=== PATIENT | female | born 1975 | race American Indian/Alaskan Native ===

== ENCOUNTER 2020-05-24 09:55 | Observation (INO) | payer OTHER ==
--- NOTE | 2020-05-24 10:00 | Event Note ---
ED Screening Note ED Screening Note: 44-year-old female that presents with chest pain and SOB with near syncope. This initial assessment/diagnostic orders/clinical plan/treatment(s) is/are subject to change based on patients health status, clinical progression and re- assessment by fellow clinical providers in the ED. Further treatment and workup at subsequent clinical providers discretion. Patient/guardian urged not to elope from the ED as their condition may be serious if not clinically assessed and managed. Initial orders include: cardiac workup
[2020-05-24 10:41] LABS: Basophils % (Auto) 0.5 % (0.0-1.8); Eosinophils # (Auto) 0.1 K/mm3 (0.0-0.4); Eosinophils % (Auto) 1.1 % (0.0-4.3); Hematocrit 45.5 % (30.3-42.9); Hemoglobin 15.6 gm/dl (10.1-14.3); Lymphocytes # (Auto) 2.6 K/mm3 (1.2-5.4); Lymphocytes % (Auto) 43.4 % (13.4-35.0); Mean Corpuscular HGB Conc 34 % (30-34); Mean Corpuscular Volume 94 fl (79-97); Monocytes # (Auto) 0.4 K/mm3 (0.0-0.8); Monocytes % (Auto) 6.9 % (0.0-7.3); Platelet Count 316 K/mm3 (140-440); Red Blood Count 4.85 M/mm3 (3.65-5.03); Red Cell Distribution Width 13.9 % (13.2-15.2)
[2020-05-24 10:47] LABS: INR 1.03 (0.87-1.13); Partial Thromboplastin Time 25.9 Sec. (24.2-36.6)
[2020-05-24 10:52] LABS: Alanine Aminotransferase 15 units/L (7-56); Albumin 4.1 g/dL (3.9-5); BUN/Creatinine Ratio 11; Blood Urea Nitrogen 9 mg/dL (7-17); Calcium 9.1 mg/dL (8.4-10.2); Hemolysis Index 7
[2020-05-24] MEDS ORDERED: FAMOTIDINE 20 MG TAB PO ONE (11:44)
[2020-05-24] MEDS ORDERED: LORazepam 1 MG TAB PO ONE (11:44)
--- NOTE | 2020-05-24 11:47 | XRay Report ---
CHEST 2 VIEWS, 05/24/2020 11:39 AM INDICATION: Chest pain COMPARISON: None FINDINGS: Support devices: None. Heart: The cardiac silhouette is normal in size. Lungs/pleura: The lungs are clear of focal airspace disease or significant pleural effusion. Additional findings: No significant acute abnormality. IMPRESSION: 1. No evidence of acute cardiopulmonary process. Signer Name: Jayleen Elias MD Signed: 05/24/2020 11:42 AM Workstation Name: [id number]
[2020-05-24] MEDS ORDERED: cloNIDine 0.1 MG TAB PO ONE (11:50)
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
[2020-05-24] MEDS ORDERED: cloNIDine 0.2 MG TAB PO ONE (12:57)
[2020-05-24] MEDS ORDERED: ASPIRIN 325 MG TAB PO ONE (14:02)
[2020-05-24] MEDS ORDERED: NITROGLYCERIN 2% OINT 1 GM TP ONE (14:02)
[2020-05-24] MEDS ORDERED: NITROGLYCERIN 0.4 MG TAB SUBL SL PRN (14:18)
[2020-05-24] MEDS ORDERED: ACETAMINOPHEN 325 MG TAB PO PRN ×2 (14:18→15:00)
--- NOTE | 2020-05-24 14:21 | History and Physical Report ---
History of Present Illness Chief complaint: Chest pain History of present illness: 44 YO Female with HTN, Medication Noncompliance presents to ED for evaluation. Patient states that she experienced sudden onset of pain in her chest shortly after awakening up from sleep this morning. Patient states that pain is 5/10, initially intermittent but has become more constant throughout the day, not worsened with exertion, not relieved with rest, substernal, nonradiating. Patient transported to [facility] via private vehicle for further care and evaluation of the aforementioned symptoms. Patient seen and evaluated in the emergency department. All lab and imaging studies reviewed. Patient found to have clinical symptoms consistent with angina. Cardiology team consulted. Patient placed in observation status and admitted to telemetry floor. Patient denies fever, chills, palpitations, productive cough, skin rash, recent ill contacts, or known exposure to COVID-19. No prior admission for review. No medication listed at time of admission for reconciliation. Past History Past Medical History: hypertension, other (See HPI) Past Surgical History: No surgical history, Other (Reviewed) Social history: single. denies: smoking, alcohol abuse, prescription drug abuse Family history: hypertension Medications and Allergies Allergies Allergy/AdvReac Type Severity Reaction Status Date / Time Penicillins AdvReac Nausea Verified 05/24/20 10:00 Home Medications Medication Instructions Recorded Confirmed Last Taken Type hydroCHLOROthiazide [HCTZ] 25 mg PO QDAY #30 tablet 04/26/18 05/24/20 Unknown Rx lisinopriL [Lisinopril] 20 mg PO DAILY #30 tablet 04/26/18 05/24/20 Unknown Rx Review of Systems Constitutional: no weight loss, no weight gain, no fever, no chills Ears, nose, mouth and throat: no ear pain, no ear discharge, no tinnitis, no nos e pain, no nasal congestion Cardiovascular: chest pain, no orthopnea, no palpitations, no edema, no syncope, no lightheadedness, no shortness of breath Respiratory: no cough, no cough with sputum, no hemoptysis, no shortness of breath Gastrointestinal: no nausea, no vomiting, no constipation Genitourinary Female: no pelvic pain, no flank pain, no dysuria, no urinary frequency, no urgency Rectal: no pain, no incontinence, no bleeding Musculoskeletal: no neck stiffness, no neck pain, no arm numbness/tingling Integumentary: no rash, no pruritis, no redness, no sores, no wounds Neurological: no paralysis, no parathesias, no numbness, no tingling, no seizures, no syncope Psychiatric: anxiety, no insomnia, no hypersomnia, no change in libido, no disorientation Endocrine: no cold intolerance, no polyphagia, no excessive thirst, no polyuria, no nocturia, no excessive sweating Hematologic/Lymphatic: no easy bruising, no easy bleeding Allergic/Immunologic: no urticaria, no allergic rhinitis, no wheezing Exam - Constitutional Vitals: Temp Pulse Resp BP Pulse Ox 97.7 F 64 16 170/103 99 05/24/20 10:03 05/24/20 14:09 05/24/20 14:00 05/24/20 14:09 05/24/20 14:00 General appearance: Present: no acute distress, well-nourished - EENT Eyes: Present: PERRL ENT: hearing intact, clear oral mucosa - Neck Neck: Present: supple, normal ROM - Respiratory Respiratory effort: normal Respiratory: bilateral: CTA - Cardiovascular Heart Sounds: Present: S1 & S2. Absent: rub, click - Extremities Extremities: pulses symmetrical, No edema Peripheral Pulses: within normal limits - Abdominal General gastrointestinal: Present: soft, non-tender, non-distended, normal bowel sounds Female genitourinary: Present: normal - Integumentary Integumentary: Present: clear, warm, dry - Musculoskeletal Musculoskeletal: gait normal, strength equal bilaterally - Psychiatric Psychiatric: appropriate mood/affect, intact judgment & insight - Neurologic Neurologic: CNII-XII intact, moves all extremities HEART Score - HEART Score EKG: Normal Age: 45-65 Risk factors: 1-2 risk factors Troponin: Troponin T 0.025 ng/mL (0.00-0.029) 05/24/20 12:58 Troponin: 1-3x normal limit Results - Labs CBC & Chem 7: 05/24/20 10:06 05/24/20 10:06 Labs: Abnormal lab results 05/24/20 05/24/20 Range/Units 10:06 10:06 Hgb 15.6 H (10.1-14.3) gm/dl Hct 45.5 H (30.3-42.9) % Lymph % (Auto) 43.4 H (13.4-35.0) % Potassium 3.4 L (3.6-5.0) mmol/L Glucose 106 H (65-100) mg/dL Assessment and Plan - Patient Problems (1) Chest pain Current Visit: Yes Status: Acute Plan to address problem: Serial cardiac enzymes, EKG, remote telemetry, cardiology team consulted in ED, stress test in a.m., PPI therapy. (2) Hypertensive urgency Current Visit: Yes Status: Acute Plan to address problem: Monitor blood pressure every shift, resume prehospital antihypertensive therapy. (3) DVT prophylaxis Current Visit: Yes Status: Acute Plan to address problem: SCD to bilateral lower extremities while in bed, patient is ambulatory.
[2020-05-24] MEDS ORDERED: ASPIRIN 81 MG TAB CHEW PO STA (14:25)
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
[2020-05-24] MEDS ORDERED: ONDANSETRON 4 MG/2 ML INJ IV PRN (15:00)
[2020-05-24] MEDS: hydroCHLOROthiazide 25 MG TAB PO SCH (15:23)
[2020-05-24] MEDS: LISINOPRIL 20 MG TAB PO SCH (15:23)
[2020-05-24 16:42] LABS: Amphetamine Screen,Urine Negative; Benzodiazepines Screen,Urine Negative; Cocaine Screen,Urine Negative; Methadone Screen,Urine Negative; Opiate Screen,Urine Negative
[2020-05-24 17:03] LABS: Cannabinoid Screen,Urine Positive
--- NOTE | 2020-05-25 08:42 | Progress Note ---
Assessment and Plan - Patient Problems (1) Angina pectoris Current Visit: Yes Status: Acute Plan to address problem: -Presented with a complaint of chest pain and near syncopal episode -Cardiology consulted -05/25 Lexiscan stress test pending -05/25 echocardiogram pending plan for Lexiscan stress MPI in AM. NPO after midnight. -Initiate chest per protocol -S/p aspirin and Pepcid in the ED -Morphine and nitroglycerin as needed -ECGs as needed -Cardiac enzymes: Less than 0.010, 0.013, 0.025, less than 0.010, less than 0.010 (2) Hypertensive urgency Current Visit: Yes Status: Acute Plan to address problem: -Presented with a blood pressure 183/114 which later was documented at 215/117 -S/p clonidine 0.3 mg in the ED and Pepcid -Restarted home antihypertensives regimen, titrate as needed -Blood pressure monitoring per protocol -Hydralazine as needed for SBP greater than 160 (3) Hypokalemia Current Visit: Yes Status: Acute Plan to address problem: -Presented with a potassium of 3.4 -Repleted -Trend BMP (4) Near syncope Current Visit: Yes Status: Acute Plan to address problem: -Presented with a near syncopal episode per patient's family -Orthostatic vital signs -Blood pressure monitoring per protocol -Patient presented with hypertensive urgency -Supportive care -Fall precautions (5) ETOH abuse Current Visit: Yes Status: Chronic Plan to address problem: -Per documentation patient 4-5 shots of liquor per week -Monitor for alcohol withdrawal -Alcohol cessation education (6) DVT prophylaxis Current Visit: Yes Status: Acute Plan to address problem: -SCDs to bilateral lower extremities while in bed History Interval history: 44 YO Female with HTN and medication noncompliance presents to the emergency department with complaints of progressive substernal, nonradiating chest pain described as "prickling"/stabbing sensation rated at a 5/10 associated with self-reported shortness of breath, tachypnea and lightheadedness. Cardiology was consulted. Hospitalist Physical - Constitutional Vitals: Temp Pulse Resp BP Pulse Ox 98.3 F 58 L 18 141/95 100 05/25/20 07:53 05/25/20 07:53 05/25/20 07:53 05/25/20 07:53 05/25/20 07:53 General appearance: Present: no acute distress, well-nourished HEART Score - HEART Score EKG: Normal Age: 45-65 Risk factors: 1-2 risk factors Troponin: Troponin T < 0.010 ng/mL (0.00-0.029) 05/24/20 20:44 Troponin: 1-3x normal limit Results - Labs CBC & Chem 7: 05/24/20 10:06 05/24/20 10:06 Labs: Laboratory Last Values WBC 5.9 K/mm3 (4.5-11.0) 05/24/20 10:06 RBC 4.85 M/mm3 (3.65-5.03) 05/24/20 10:06 Hgb 15.6 gm/dl (10.1-14.3) H 05/24/20 10:06 Hct 45.5 % (30.3-42.9) H 05/24/20 10:06 MCV 94 fl (79-97) 05/24/20 10:06 MCH 32 pg (28-32) 05/24/20 10:06 MCHC 34 % (30-34) 05/24/20 10:06 RDW 13.9 % (13.2-15.2) 05/24/20 10:06 Plt Count 316 K/mm3 (140-440) 05/24/20 10:06 Lymph % (Auto) 43.4 % (13.4-35.0) H 05/24/20 10:06 Glasscock % (Auto) 6.9 % (0.0-7.3) 05/24/20 10:06 Eos % (Auto) 1.1 % (0.0-4.3) 05/24/20 10:06 Baso % (Auto) 0.5 % (0.0-1.8) 05/24/20 10:06 Lymph # (Auto) 2.6 K/mm3 (1.2-5.4) 05/24/20 10:06 Glasscock # (Auto) 0.4 K/mm3 (0.0-0.8) 05/24/20 10:06 Eos # (Auto) 0.1 K/mm3 (0.0-0.4) 05/24/20 10:06 Baso # (Auto) 0.0 K/mm3 (0.0-0.1) 05/24/20 10:06 Seg Neutrophils % 48.1 % (40.0-70.0) 05/24/20 10:06 Seg Neutrophils # 2.8 K/mm3 (1.8-7.7) 05/24/20 10:06 PT 13.4 Sec. (12.2-14.9) 05/24/20 10:06 INR 1.03 (0.87-1.13) 05/24/20 10:06 APTT 25.9 Sec. (24.2-36.6) 05/24/20 10:06 Sodium 143 mmol/L (137-145) 05/24/20 10:06 Potassium 3.4 mmol/L (3.6-5.0) L 05/24/20 10:06 Chloride 103.0 mmol/L (98-107) 05/24/20 10:06 Carbon Dioxide 27 mmol/L (22-30) 05/24/20 10:06 Anion Gap 16 mmol/L 05/24/20 10:06 BUN 9 mg/dL (7-17) 05/24/20 10:06 Creatinine 0.8 mg/dL (0.6-1.2) 05/24/20 10:06 Estimated GFR > 60 ml/min 05/24/20 10:06 BUN/Creatinine Ratio 11 % 05/24/20 10:06 Glucose 106 mg/dL (65-100) H 05/24/20 10:06 Calcium 9.1 mg/dL (8.4-10.2) 05/24/20 10:06 Total Bilirubin 0.50 mg/dL (0.1-1.2) 05/24/20 10:06 AST 15 units/L (5-40) 05/24/20 10:06 ALT 15 units/L (7-56) 05/24/20 10:06 Alkaline Phosphatase 110 units/L (35-129) 05/24/20 10:06 Troponin T < 0.010 ng/mL (0.00-0.029) 05/24/20 20:44 Total Protein 7.3 g/dL (6.3-8.2) 05/24/20 10:06 Albumin 4.1 g/dL (3.9-5) 05/24/20 10:06 Albumin/Globulin Ratio 1.3 % 05/24/20 10:06 HCG, Qual Negative (Negative) 05/24/20 10:06 Urine Opiates Screen Negative 05/24/20 15:25 Urine Methadone Screen Negative 05/24/20 15:25 Ur Barbiturates Screen Negative 05/24/20 15:25 Ur Phencyclidine Scrn Negative 05/24/20 15:25 Ur Amphetamines Screen Negative 05/24/20 15:25 U Benzodiazepines Scrn Negative 05/24/20 15:25 Urine Cocaine Screen Negative 05/24/20 15:25 U Marijuana (THC) Screen Positive 05/24/20 15:25 Drugs of Abuse Note Disclamer 05/24/20 15:25 Lang/IV: Voiding Method Toilet IV Catheter Type [Right INT / Saline Lock Forearm] Active Medications - Current Medications Current Medications: Generic Name Dose Route Start Last Admin Trade Name Freq PRN Reason Stop Dose Admin Acetaminophen 650 mg 05/24/20 14:18 Acetaminophen 325 Mg Tab PO Q4H PRN Pain MILD(1-3)/Fever >100.5/ZHANG Hydrochlorothiazide 25 mg 05/24/20 15:23 05/24/20 15:23 Hydrochlorothiazide 25 Mg Tab PO 25 mg QDAY SENG Administration Lisinopril 20 mg 05/24/20 14:23 05/24/20 15:23 Lisinopril 20 Mg Tab PO 20 mg QDAY SENG Administration Nitroglycerin 0.4 mg 05/24/20 14:18 Nitroglycerin 0.4 Mg Tab Subl SL Q5M PRN Chest Pain Ondansetron HCl 4 mg 05/24/20 15:00 Ondansetron 4 Mg/2 Ml Inj IV Q8H PRN Nausea And Vomiting Potassium Chloride 20 meq 05/25/20 09:00 Potassium Chloride Er 20 Meq Tab PO 05/25/20 09:01 ONCE ONE Sodium Chloride 10 ml 05/24/20 22:00 05/24/20 21:03 Sodium Chloride 0.9% 10 Ml Flush Syringe IV 10 ml BID SENG Administration Sodium Chloride 10 ml 05/24/20 15:00 Sodium Chloride 0.9% 10 Ml Flush Syringe IV PRN PRN LINE FLUSH Sodium Chloride 10 ml 05/24/20 15:00 Sodium Chloride 0.9% 10 Ml Flush Syringe IV PRN PRN LINE FLUSH
[2020-05-25] MEDS ORDERED: POTASSIUM CHLORIDE ER 20 MEQ TAB PO NR (09:00)
[2020-05-25] MEDS ORDERED: REGADENOSON 0.4 MG/5 ML INJ IV ONE (09:27)
--- NOTE | 2020-05-25 11:21 | Treadmill Report ---
REASON FOR STUDY: Chest pain and borderline troponin. Heart score of 4. IMAGING PROTOCOL: The patient received 10 mCi of Technetium 99m Tetrofosmin for resting image and 28 mCi of Technetium 99m Tetrofosmin for stress imaging. The imaging for the whole procedure was completed 30-90 minutes following the initial injection of Technetium 99m Tetrofosmin. The SPECT imaging in the 180 degree arc was performed in the right anterior oblique projection. Computerized reconstruction of the images was performed for analysis. IMAGING RESULTS: Normal cavity size from stress to rest. Normal distribution regular anterior, inferior, septal, and apical regions. Gated SPECT, EF 57% with no wall motion abnormalities. The patient infused Lexiscan with no EKG changes. SUMMARY: 1. Negative Lexiscan EKG. 2. Normal rest and stress myocardial perfusion scan. No significant ischemia. No wall motion abnormality. EF is 57%. JOB# [id number] KYLEIGH/BECKI
--- NOTE | 2020-05-25 11:52 | Progress Note ---
Assessment and Plan tte reviewed - EF 55-60%, no significant abnormalities. s/p lexiscan MPI stress test today which was negative. Currently stable cardiac status. Optimize anti-hypertensive regimen. Pt may discharge from cardiology standpoint pending BPs are stable. Recommend follow up in our office with Dr. Baron within 2 weeks ([phone]). The patient has been seen in conjunction with Dr. Baron who agrees with the assessment and plan of care. - Patient Problems (1) Chest pain Current Visit: Yes Status: Resolved (2) Hypertensive urgency Current Visit: Yes Status: Acute (3) Near syncope Current Visit: Yes Status: Acute (4) ETOH abuse Current Visit: Yes Status: Chronic Subjective Date of service: 05/25/20 Principal diagnosis: cp; htn Interval history: pt for stress test, no current cardiac complaints. in SR on tele. Objective Last Vital Signs Temp 98.0 F 05/25/20 11:32 Pulse 62 05/25/20 11:32 Resp 18 05/25/20 11:32 BP 151/110 05/25/20 11:32 Pulse Ox 100 05/25/20 11:32 - Physical Examination General: No Apparent Distress HEENT: Positive: EOMI, Normocephaly Neck: Positive: neck supple, trachea midline. Negative: JVD/HJR Cardiac: Positive: Reg Rate and Rhythm, S1/S2 Lungs: Positive: Decreased Breath Sounds Neuro: Positive: Grossly Intact Abdomen: Positive: Soft. Negative: Tender Skin: Positive: Clear Musculoskeletal: No Pain, Normal Range of Motion Extremities: Present: upper extr. pulses, lower extr. pulses. Absent: edema - Imaging and Cardiology EKG: report reviewed, image reviewed Echo: report reviewed - Telemetry EKG Rhythm: Sinus Rhythm - EKG Sinus rhythms and dysrhythmias: sinus rhythm
[2020-05-25] MEDS: hydroCHLOROthiazide 25 MG TAB PO SCH (11:56)
[2020-05-25] MEDS: LISINOPRIL 20 MG TAB PO SCH (12:04)
[2020-05-25] MEDS ORDERED: hydrALAZINE 20 MG/1 ML INJ IV PRN (12:30)
[2020-05-25] MEDS ORDERED: LISINOPRIL 20 MG TAB PO SCH (12:30)
--- NOTE | 2020-05-25 12:45 | Discharge Summary ---
Providers - Providers Date of Admission: 05/24/20 14:18 Attending physician: HERBIE MARTÍNEZ 05/24/20 Consult to Cardiac Rehabilitation [CONS] Routine Reason For Exam: Phase I 05/24/20 14:15 Consult to Physician [CONS] Urgent Comment: Consulting Provider: BRIDGET BARON Physician Instructions: Reason For Exam: chest pain rising troponin Primary care physician: [employer] Hospitalization Condition: Stable Hospital course: 44 YO Female with HTN and medication noncompliance presents to the emergency department with complaints of progressive substernal, nonradiating chest pain described as "prickling"/stabbing sensation rated at a 5/10 associated with self-reported shortness of breath, tachypnea and lightheadedness. Patient had a Lexiscan MPI stress test today which was negative for ischemia and an echocardiogram showed an ejection fraction of 55 to 60% with no significant abnormalities. Patient will be discharged to continue her current antihypertensive regimen. Patient will need to follow-up with her primary care physician and Dr. Baron within 2 weeks ([phone]) in his office. Patient has also been given resources to aid in medication compliance such as the use of [facility]ash and local free clinics. - Patient Problems (1) Angina pectoris Current Visit: Yes Status: Acute Plan to address problem: -Presented with a complaint of chest pain and near syncopal episode -Cardiology consulted, appreciate recommendations -05/25 Lexiscan MPI stress test negative -05/25 echocardiogram shows an EF 55-60% with no significant abnormalities. -S/p aspirin and Pepcid in the ED -Discharged with nitroglycerin as needed - ECG with no significant abnormality -Cardiac enzymes: Less than 0.010, 0.013, 0.025, less than 0.010, less than 0.010 -Per cardiology: Recommend follow up with Dr. Baron within 2 weeks ([phone]) in his office. (2) Hypertensive urgency Current Visit: Yes Status: Acute Plan to address problem: -Presented with a blood pressure 183/114 which later was documented at 215/117 -S/p clonidine 0.3 mg in the ED and Pepcid -Continue current antihypertensive regimen -Blood pressure monitoring per PCP instructions (3) Hypokalemia Current Visit: Yes Status: Acute Plan to address problem: -Presented with a potassium of 3.4 -Repleted (4) Near syncope Current Visit: Yes Status: Acute Plan to address problem: -Presented with a near syncopal episode per patient's family -Orthostatic vital signs wihtin normal limits -Continue Fall precautions (5) ETOH abuse Current Visit: Yes Status: Chronic Plan to address problem: -Per documentation patient 4-5 shots of liquor per week - Consider outpatient rehab if needed -Alcohol cessation education Disposition: DC-01 TO HOME OR SELFCARE Time spent for discharge: 30 Core Measure Documentation - Palliative Care Palliative Care/ Comfort Measures: Not Applicable - Core Measures Any of the following diagnoses?: none Exam - Constitutional Vitals: Temp Pulse Resp BP Pulse Ox 98.0 F 62 18 151/110 100 05/25/20 11:32 05/25/20 11:32 05/25/20 11:32 05/25/20 11:32 05/25/20 11:32 General appearance: Present: no acute distress - EENT Eyes: Present: PERRL, EOM intact ENT: hearing intact, clear oral mucosa, dentition normal - Neck Neck: Present: normal ROM - Respiratory Respiratory effort: normal Respiratory: bilateral: CTA - Cardiovascular Rhythm: regular Heart Sounds: Present: S1 & S2. Absent: systolic murmur, diastolic murmur - Extremities Extremities: no ischemia, pulses intact, pulses symmetrical, No edema, normal temperature, normal color, Full ROM Peripheral Pulses: within normal limits - Abdominal General gastrointestinal: Present: soft, non-tender, non-distended, normal bowel sounds - Integumentary Integumentary: Present: warm, dry - Musculoskeletal Musculoskeletal: strength equal bilaterally - Psychiatric Psychiatric: appropriate mood/affect, cooperative - Neurologic Neurologic: CNII-XII intact, no focal deficits, moves all extremities - Allied Health Allied health notes reviewed: nursing Plan Activity: advance as tolerated Diet: low fat, low salt Special Instructions: record daily BP diary, other (Alcohol cessation) Additional Instructions: Present to nearest emergency department or contact your primary care physician if you experience worsening symptoms. You will be discharged with your current antihypertensive regimen. You will need to follow- up with your primary care physician and director food and beverage within 1 to 2 weeks of discharge. You will be discharged with labetalol and check your heart rate before taking this medication. If it is less than 60 then do not take it. Follow up with: PRIMARY CARE, [Primary Care Provider] - 7 Days BRIDGET BARON MD [Staff Physician] - 7 Days [facility] [Outside] - 7 Days [facility] [Outside] - 7 Days [facility] [Outside] - 7 Days [facility] [Outside] - 7 Days Prescriptions: amLODIPine 10 mg PO QDAY #30 tablet hydroCHLOROthiazide [HCTZ] 25 mg PO QDAY #30 tablet labetaloL [Labetalol 100mg TAB] 100 mg PO BID #60 tablet labetaloL [Labetalol 100mg TAB] 200 mg PO BID #120 tablet Nitroglycerin [Nitrostat] 0.4 mg SL Q5M PRN #7 tablet PRN Reason: Chest Pain lisinopriL [Zestril TAB] 40 mg PO QDAY #30 tablet
[2020-05-25] MEDS ORDERED: amLODIPine 10 MG TAB PO SCH (13:00)
[2020-05-25 17:11] VITALS: BP 140/95
[2020-05-26] MEDS ORDERED: amLODIPine 10 MG TAB PO SCH (10:00)
== END 2020-05-25 19:29 | disposition home or self-care (01) ==
LOC: ED 09:55 → 4A 14:18
PROVIDERS: ADMIT Internal Medicine; ATTEND Hospitalist
DX: I16.0 Hypertensive urgency (principal); I20.8 Other forms of angina pectoris; R07.89 Other chest pain; R55 Syncope and collapse; E87.6 Hypokalemia; F10.129 Alcohol abuse with intoxication, unspecified; Z91.14 Patient's other noncompliance with medication regimen; Z87.891 Personal history of nicotine dependence; Z79.82 Long term (current) use of aspirin; Z79.899 Other long term (current) drug therapy
CPT/HCPCS: 36415; 71046; 78452; 80053; 80307; 84484; 84703; 85025; 85610; 85730; 93005; 93017; 93306; 96374; 99291; A9502; G0378; J0360; J2785

== ENCOUNTER 2020-06-05 14:26 | Emergency (ER) | payer OTHER ==
[2020-06-05 14:42] VITALS: BP 207/115
--- NOTE | 2020-06-05 15:02 | Event Note ---
ED Screening Note Date of service: 06/05/20 Time: 14:41 ED Screening Note: 44-year-old -[place] female presents to the emergency room for abdominal pain that started at 5 AM. This initial assessment/diagnostic orders/clinical plan/treatment(s) is/are subject to change based on patients health status, clinical progression and re- assessment by fellow clinical providers in the ED. Further treatment and workup at subsequent clinical providers discretion. Patient/guardian urged not to elope from the ED as their condition may be serious if not clinically assessed and managed. Initial orders include:
[2020-06-05 16:13] LABS: Basophils % (Auto) 0.4 % (0.0-1.8); Lymphocytes # (Auto) 0.9 K/mm3 (1.2-5.4); Lymphocytes % (Auto) 10.7 % (13.4-35.0); Mean Corpuscular HGB Conc 36 % (30-34); Mean Corpuscular Volume 92 fl (79-97); Monocytes # (Auto) 0.1 K/mm3 (0.0-0.8); Monocytes % (Auto) 1.4 % (0.0-7.3); Platelet Count 346 K/mm3 (140-440); Red Blood Count 4.81 M/mm3 (3.65-5.03); Red Cell Distribution Width 12.9 % (13.2-15.2)
[2020-06-05 16:16] LABS: Hematocrit 44.3 % (30.3-42.9)
[2020-06-05 16:37] LABS: Alanine Aminotransferase 23 units/L (7-56); Albumin 4.8 g/dL (3.9-5); BUN/Creatinine Ratio 19; Blood Urea Nitrogen 15 mg/dL (7-17); Calcium 9.6 mg/dL (8.4-10.2); Hemolysis Index 15
--- NOTE | 2020-06-05 17:10 | XRay Report ---
ABDOMEN 1 VIEW(S) INDICATION / CLINICAL INFORMATION: Abdominal pain, elevated blood pressure. COMPARISON: None available. FINDINGS: TUBES / LINES: None. BOWEL GAS PATTERN/EXTRALUMINAL GAS: No significant abnormality. No pneumatosis or secondary signs of free air. ADDITIONAL FINDINGS: No significant additional findings. IMPRESSION: 1. No significant abnormality. Signer Name: Codey Sanchez MD Signed: 06/05/2020 5:05 PM Workstation Name: [id number]
== END 2020-06-05 20:30 | disposition left against medical advice (07) ==
LOC: ED 14:26
DX: R10.9 Unspecified abdominal pain (principal); Z53.21 Procedure and treatment not carried out due to patient leaving prior to being seen by health care provider
CPT/HCPCS: 36415; 74018; 80053; 83690; 84702; 85025